=== PATIENT | male | born 1935 | race Caucasian/White ===

== ENCOUNTER 2017-07-16 10:45 | Inpatient (IN) | payer MEDICARE, OTHER ==
[2017-07-16] MEDS ORDERED: IPRATROPIUM-ALBUTEROL 3 ML NEB INHALATION STA ×2 (12:15→13:54)
--- NOTE | 2017-07-16 12:18 | ED ---
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 He also had intermittent episodes a slight confusion he has chills and feels cold more than usual. He's had an upper respiratory infection with sinus drainage and a cough. He was seen at the [facility] 3 [facility] 4 days ago and apparently nothing was found. EKG done. No dysuria no hematuria he does have a cough with minimal phlegm production - Related Data Home Medications Medication Instructions Recorded Confirmed Aspirin/Dipyridamole [Aggrenox 1 cap PO BID 07/16/17 07/16/17 25MG -200MG] Atenolol [Tenormin] 50 mg PO DAILY 07/16/17 07/16/17 Citalopram Hydrobromide [CeleXA] 20 mg PO DAILY 07/16/17 07/16/17 Finasteride [Proscar] 5 mg PO DAILY 07/16/17 07/16/17 Folic Acid 1 mg PO DAILY 07/16/17 07/16/17 Hydrochlorothiazide [Hydrodiuril] 50 mg PO DAILY 07/16/17 07/16/17 Pyridoxine 25mg 25 mg PO DAILY 07/16/17 07/16/17 Simvastatin [Zocor] 20 mg PO HS 07/16/17 07/16/17 Terazosin [Hytrin] 5 mg PO HS 07/16/17 07/16/17 amLODIPine [Norvasc] 5 mg PO DAILY 07/16/17 07/16/17 metFORMIN HCL [Glucophage] 500 mg PO DAILY 07/16/17 07/16/17 Allergies Allergy/AdvReac Type Severity Reaction Status Date / Time No Known Allergies Allergy Verified 07/16/17 11:16 Review of Systems ROS Statement: Those systems with pertinent positive or pertinent negative responses have been documented in the HPI. ROS Other: All systems not noted in ROS Statement are negative. Past Medical History Past Medical History: Heart Failure, CVA/TIA, Hyperlipidemia, Hypertension, Prostate Disorder History of Any Multi-Drug Resistant Organisms: None Reported Past Surgical History: Hernia Repair Past Psychological History: Anxiety Smoking Status: Former smoker Past Alcohol Use History: None Reported, Rare Past Drug Use History: None Reported General Exam - General Exam Comments Initial Comments: This a well-developed well-nourished awake alert oriented 3 male he is somewhat hard of hearing Limitations: physical limitation General appearance: alert, in no apparent distress Head exam: Present: atraumatic, normocephalic, normal inspection Eye exam: Present: normal appearance, PERRL, EOMI. Absent: scleral icterus, conjunctival injection, periorbital swelling ENT exam: Present: mucous membranes dry Neck exam: Present: normal inspection. Absent: tenderness, meningismus, lymphadenopathy Respiratory exam: Present: rhonchi (Basilar rhonchi more so on the left than the right), decreased breath sounds. Absent: respiratory distress, wheezes, rales, stridor Cardiovascular Exam: Present: regular rate, normal rhythm, normal heart sounds. Absent: systolic murmur, diastolic murmur, rubs, gallop, clicks GI/Abdominal exam: Present: soft, normal bowel sounds. Absent: distended, tenderness, guarding, rebound, rigid Extremities exam: Present: normal inspection, full ROM, normal capillary refill. Absent: tenderness, pedal edema, joint swelling, calf tenderness Back exam: Present: normal inspection Neurological exam: Present: alert, oriented X3, CN II-XII intact Psychiatric exam: Present: normal affect, normal mood Skin exam: Present: warm, dry, intact, normal color. Absent: rash Course Vital Signs 07/16/17 07/16/17 07/16/17 11:02 12:26 12:56 Temperature 97.5 F L Pulse Rate 60 68 61 Respiratory 18 16 Rate Blood Pressure 110/56 O2 Sat by Pulse 97 Oximetry 07/16/17 07/16/17 07/16/17 13:05 14:00 14:34 Temperature 98.8 F Pulse Rate 57 L 70 72 Respiratory 18 Rate Blood Pressure 134/58 O2 Sat by Pulse 98 Oximetry 07/16/17 14:44 Temperature Pulse Rate 74 Respiratory Rate Blood Pressure O2 Sat by Pulse Oximetry EKG Findings - EKG Results: EKG: interpreted by ERMD (Sinus bradycardia with first-degree AV block rate was 58. Interval 2:30 QRS 94 QT since QTC of 462/453 st-t wave changes) Medical Decision Making - Medical Decision Making I did discuss findings with patient family members as well as Dr. Rogers's group patient will be admitted for evaluation by nephrology. - Lab Data Result diagrams: 07/16/17 11:27 07/16/17 11:27 Lab Results 07/16/17 07/16/17 07/16/17 Range/Units 11:27 11:27 11:27 WBC 15.0 H (3.8-10.6) k/uL RBC 3.63 L (4.30-5.90) m/uL Hgb 11.6 L (13.0-17.5) gm/dL Hct 34.2 L (39.0-53.0) % MCV 94.0 (80.0-100.0) fL MCH 31.9 (25.0-35.0) pg MCHC 33.9 (31.0-37.0) g/dL RDW 12.1 (11.5-15.5) % Plt Count 326 (150-450) k/uL Neutrophils % 82 % Lymphocytes % 10 % Monocytes % 5 % Eosinophils % 1 % Basophils % 0 % Neutrophils # 12.3 H (1.3-7.7) k/uL Lymphocytes # 1.4 (1.0-4.8) k/uL Monocytes # 0.8 (0-1.0) k/uL Eosinophils # 0.1 (0-0.7) k/uL Basophils # 0.1 (0-0.2) k/uL Sodium (137-145) mmol/L Potassium (3.5-5.1) mmol/L Chloride (98-107) mmol/L Carbon Dioxide (22-30) mmol/L Anion Gap mmol/L BUN (9-20) mg/dL Creatinine (0.66-1.25) mg/dL Est GFR (MDRD) Af Amer (>60 ml/min/1.73 sqM) Est GFR (MDRD) Non-Af (>60 ml/min/1.73 sqM) Glucose (74-99) mg/dL Calcium (8.4-10.2) mg/dL Magnesium (1.6-2.3) mg/dL Total Bilirubin (0.2-1.3) mg/dL AST (17-59) U/L ALT (21-72) U/L Alkaline Phosphatase (38-126) U/L Total Creatine Kinase 48 L (55-170) U/L CK-MB (CK-2) 0.5 (0.0-2.4) ng/mL CK-MB (CK-2) Rel Index 1.0 Troponin I 0.022 (0.000-0.034) ng/mL NT-Pro-B Natriuret Pep 62341 pg/mL Total Protein (6.3-8.2) g/dL Albumin (3.5-5.0) g/dL Urine Color Urine Appearance (Clear) Urine pH (5.0-8.0) Ur Specific [place] (1.001-1.035) Urine Protein (Negative) Urine Glucose (UA) (Negative) Urine Ketones (Negative) Urine Blood (Negative) Urine Nitrite (Negative) Urine Bilirubin (Negative) Urine Urobilinogen (<2.0) mg/dL Ur Leukocyte Esterase (Negative) Urine RBC (0-5) /hpf Urine WBC (0-5) /hpf Urine Bacteria (None) /hpf Urine Mucus (None) /hpf 07/16/17 07/16/17 Range/Units 11:27 12:20 WBC (3.8-10.6) k/uL RBC (4.30-5.90) m/uL Hgb (13.0-17.5) gm/dL Hct (39.0-53.0) % MCV (80.0-100.0) fL MCH (25.0-35.0) pg MCHC (31.0-37.0) g/dL RDW (11.5-15.5) % Plt Count (150-450) k/uL Neutrophils % % Lymphocytes % % Monocytes % % Eosinophils % % Basophils % % Neutrophils # (1.3-7.7) k/uL Lymphocytes # (1.0-4.8) k/uL Monocytes # (0-1.0) k/uL Eosinophils # (0-0.7) k/uL Basophils # (0-0.2) k/uL Sodium 131 L (137-145) mmol/L Potassium 3.0 L* (3.5-5.1) mmol/L Chloride 90 L (98-107) mmol/L Carbon Dioxide 24 (22-30) mmol/L Anion Gap 17 mmol/L BUN 93 H* (9-20) mg/dL Creatinine 3.49 H (0.66-1.25) mg/dL Est GFR (MDRD) Af Amer 21 (>60 ml/min/1.73 sqM) Est GFR (MDRD) Non-Af 17 (>60 ml/min/1.73 sqM) Glucose 173 H (74-99) mg/dL Calcium 8.1 L (8.4-10.2) mg/dL Magnesium 2.5 H (1.6-2.3) mg/dL Total Bilirubin 0.5 (0.2-1.3) mg/dL AST 21 (17-59) U/L ALT 26 (21-72) U/L Alkaline Phosphatase 79 (38-126) U/L Total Creatine Kinase (55-170) U/L CK-MB (CK-2) (0.0-2.4) ng/mL CK-MB (CK-2) Rel Index Troponin I (0.000-0.034) ng/mL NT-Pro-B Natriuret Pep pg/mL Total Protein 6.6 (6.3-8.2) g/dL Albumin 3.3 L (3.5-5.0) g/dL Urine Color Light Yellow Urine Appearance Clear (Clear) Urine pH 6.0 (5.0-8.0) Ur Specific [place] 1.007 (1.001-1.035) Urine Protein 1+ H (Negative) Urine Glucose (UA) Negative (Negative) Urine Ketones Negative (Negative) Urine Blood Moderate H (Negative) Urine Nitrite Negative (Negative) Urine Bilirubin Negative (Negative) Urine Urobilinogen <2.0 (<2.0) mg/dL Ur Leukocyte Esterase Moderate H (Negative) Urine RBC 3 (0-5) /hpf Urine WBC 22 H (0-5) /hpf Urine Bacteria Few H (None) /hpf Urine Mucus Rare H (None) /hpf - Radiology Data Radiology results: report reviewed (I did review the imaging and reports no acute findings.), image reviewed Disposition Clinical Impression: Acute renal failure (ARF), Congestive heart failure (CHF), Failure to thrive Disposition: ADMITTED IP TO THIS HOSP Condition: Stable Referrals: Caio Muñoz DO [Primary Care Provider] - 1-2 days
[2017-07-16 12:32] LABS: Basophils # (A) 0.1 k/uL (0-0.2); Basophils % (A) 0 %; CH 31.6; CHCM 33.7; Eosinophils # (A) 0.1 k/uL (0-0.7); Eosinophils % (A) 1 %; HCT 34.2 % (39.0-53.0); HDW 2.21; HGB 11.6 gm/dL (13.0-17.5); Luc # (Auto) 0.29; Luc % (Auto) 2; Lymphocytes # (A) 1.4 k/uL (1.0-4.8); Lymphocytes % (A) 10 %; MCH 31.9 pg (25.0-35.0); MCHC 33.9 g/dL (31.0-37.0); Mean Platelet Volume 7.3; Monocytes # (A) 0.8 k/uL (0-1.0); Monocytes % (A) 5 %; Neutrophils # (A) 12.3 k/uL (1.3-7.7); Neutrophils % (A) 82 %; RBC 3.63 m/uL (4.30-5.90); RDW 12.1 % (11.5-15.5); WBC (Perox) 15.28
[2017-07-16 12:38] LABS: Calcium 8.1 mg/dL (8.4-10.2); Magnesium 2.5 mg/dL (1.6-2.3); Total Bilirubin 0.5 mg/dL (0.2-1.3); Total Protein 6.6 g/dL (6.3-8.2)
[2017-07-16 12:40] LABS: Appearance,Urine Clear (Clear); Bacteria,Urine Few /hpf; Bilirubin,Urine Negative (Negative); Glucose,Urine (UA) Negative (Negative); Ketones,Urine Negative (Negative); Leukocyte Esterase,Urine Moderate (Negative); Mucus,Urine Rare /hpf; Nitrite,Urine Negative (Negative); Particle Count 1023; Protein,Urine 1+ (Negative); RBC,Urine 3 /hpf (0-5); Specific Gravity,Urine 1.007 (1.001-1.035); UA Billing (MACRO vs. MICRO) MICRO; Urobilinogen,Urine <2.0 mg/dL (<2.0); WBC,Urine 22 /hpf (0-5)
--- NOTE | 2017-07-16 12:48 | XR ---
EXAMINATION TYPE: XR chest 2V DATE OF EXAM: 07/16/2017 COMPARISON: Chest x-ray Feb 13 2012 HISTORY: History of heart failure presents with cough. TECHNIQUE: Frontal and lateral views of the chest are obtained. FINDINGS: There is no focal air space opacity, pleural effusion, or pneumothorax seen. The cardiac silhouette size remains enlarged. 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 The osseous structures are somewhat demineralized. IMPRESSION: Cardiomegaly without acute pulmonary process. No significant change from prior.
[2017-07-16 13:16] LABS: Creatine Kinase MB 0.5 ng/mL (0.0-2.4); Troponin I 0.022 ng/mL (0.000-0.034)
[2017-07-16] MEDS ORDERED: SODIUM CHLORIDE 0.9% 1,000 ML IV SCH (15:30)
[2017-07-16] MEDS: INSULIN LISPRO (humaLOG) 300 UNIT/3 ML VIAL SQ SCH ×2 (20:26→22:00)
[2017-07-16] MEDS ORDERED: Potassium Replacement Protocol 1 EACH MISC MISCELLANE PRN (20:33)
[2017-07-16] MEDS: NITROGLYCERIN OINT 1 INCH/GM PACKET TOPICAL SCH ×2 (20:34→22:12)
[2017-07-16] MEDS: DIPYRIDAMOLE-ASPIRIN 200-25 MG 1 EACH CPMP.12HR PO SCH (20:36)
[2017-07-16] MEDS: ATORVASTATIN 10 MG TAB PO SCH (20:36)
[2017-07-16] MEDS: FUROSEMIDE 10 MG/ML 4 ML VIAL IV SCH (20:36)
[2017-07-16] MEDS: TERAZOSIN 5 MG CAP PO SCH (20:36)
[2017-07-16 20:51] LABS: Glucose,Whole Blood 211 mg/dL (75-99)
[2017-07-16] MEDS ORDERED: POTASSIUM CHLORIDE ER 20 MEQ TAB.ER PO STA (20:53)
[2017-07-16] MEDS ORDERED: POTASSIUM CHLORIDE ER 20 MEQ TAB.ER PO SCH (21:00)
[2017-07-16] MEDS ORDERED: LEVOFLOXACIN 500MG-D5W PMX 500 MG in DEXTROSE/WATER 1 100ML.BAG IVPB SCH (21:00)
[2017-07-16 21:50] LABS: Hemoglobin A1C 7.4 % (4.2-6.1)
[2017-07-16] MEDS: SODIUM CHLORIDE 0.9% 1,000 ML IV SCH (21:54)
--- NOTE | 2017-07-17 06:30 | HP ---
HISTORY AND PHYSICAL DATE OF SERVICE: 07/16/2017 CHIEF COMPLAINT: Chief complaints are change in mental status and weakness. HISTORY OF PRESENT ILLNESS: This 81-year-old gentleman with a past medical history of multiple medical problems including history of CVA, TIA, CHF, hypertension, hyperlipidemia. History of prostate disorder was being followed by Dr. Muñoz in the outpatient setting. Apparently patient is not feeling well, tired, weak and patient had stroke-like symptoms and patient taken to [facility] and admitted for further evaluation and treatment. Apparently patient did golf quite bit a couple of days ago. In the ER the patient was found to have elevated creatinine at 3.49. Patient was admitted for further evaluation and treatment. Evidence of UTI was also noted. There is no history of any fever , rigors. No history of headache, loss of consciousness or seizures. PAST MEDICAL HISTORY: History of CHF, history of CVA, TIA, hypertension, hyperlipidemia, prostate disorder. MEDICATIONS: Home medications are: 1. Glucophage 500 mg p.o. daily. 2. Norvasc 5 mg p.o. daily. 3. Hytrin 5 mg q.h.s. 4. Zocor 20 mg p.o. q.h.s. 5. Pyridoxine 25 mg p.o. daily. 6. HydroDIURIL 50 mg daily. 7. Folic acid 1 mg daily. 8. Proscar 5 mg p.o. daily. 9. Celexa 20 mg daily. 10.Tenormin 50 mg p.o. daily. 11.Aggrenox 1 p.o. b.i.d. ALLERGIES: Allergies are none. FAMILY HISTORY: No history of heart disease or strokes in the family. SOCIAL HISTORY: Previous history of smoking. No history of current smoking or alcohol intake. REVIEW OF SYSTEMS: ENT: Diminished hearing and diminished vision. CARDIOVASCULAR SYSTEM: No angina or palpitations. RESPIRATORY SYSTEM: No cough, no hemoptysis. GI: As mentioned earlier. : No dysuria. NERVOUS SYSTEM: As mentioned earlier. ALLERGY/IMMUNOLOGY: No asthma or hayfever. MUSCULOSKELETAL: As mentioned earlier. HEMATOLOGY/ONCOLOGY: No history of anemia. ENDOCRINE: No history of diabetes mellitus or hypothyroidism. CONSTITUTIONAL: As mentioned earlier. DERMATOLOGY: Negative. RHEUMATOLOGY: Negative. PSYCHIATRY: As mentioned earlier. PHYSICAL EXAMINATION: The patient is alert and oriented x3. Pulse is 69, blood pressure is 128/59, respirations 16, temperature 98 degrees, pulse ox 96% on 2 L. HEENT: Conjunctivae clear. Oral mucosa dry. NECK: No jugular venous distention. No carotid bruit. No lymph node enlargement. CARDIOVASCULAR: S1 and S2 muffled. No S3, no S4. RESPIRATORY: Breath sounds diminished at the bases. A few scattered rhonchi. No crackles. ABDOMEN: Soft, nontender. No mass palpable. LEGS: No edema, no swelling. NERVOUS SYSTEM: Higher function as mentioned. Moves all 4 limbs. No focal motor or sensory deficits. LYMPHATICS: No lymphadenopathy of the neck, axillae or groin. SKIN: No ulcers, rashes or bleeding. LABS: WBC 15, hemoglobin 11.6. Sodium 131, potassium 3. Magnesium is 2.5. UA noted. ASSESSMENT: 1. Acute renal failure possibly prerenal _acute tubular necrosis. 2. Hypokalemia. 3. History of congestive heart failure. 4. Urinary tract infection. 5. Increased WBC. 6. History of cerebrovascular accident, transient ischemic attack. 7. Hypertension. 8. Hyperlipidemia. RECOMMENDATION AND DISCUSSION: In this 81-year-old gentleman who presented with multiple complex medical issues , will monitor the patient closely. Continue the current medications, continue symptomatic treatment. Will initiate IV fluids cautiously, IV antibiotics. Otherwise I would also recommend Cardiology and Nephrology consultations. Other than that, I would recommend to hold the diuretics and continue to monitor. Obtain cultures. Resume the rest of the medications. Avoid nephrotoxic medications. The prognosis guarded because of the multiple complex medical issues. Initial chest x-ray did not show any evidence of CHF but however, we will carefully monitor. Discussed with the patient, understands and agrees. A copy of dictation forwarded to Dr. Muñoz who is the primary physician. MMODL / IJN: [id number] / MTDNely
[2017-07-17] MEDS ORDERED: POTASSIUM CHLORIDE ER 20 MEQ TAB.ER PO SCH (07:00)
[2017-07-17] MEDS: FUROSEMIDE 10 MG/ML 4 ML VIAL IV SCH (07:00)
[2017-07-17] MEDS: INSULIN LISPRO (humaLOG) 300 UNIT/3 ML VIAL SQ SCH ×4 (07:01→21:06)
[2017-07-17 07:07] LABS: Glucose,Whole Blood 178 mg/dL (75-99)
[2017-07-17] MEDS: ATENOLOL 50 MG TAB PO SCH (08:29)
[2017-07-17] MEDS: DIPYRIDAMOLE-ASPIRIN 200-25 MG 1 EACH CPMP.12HR PO SCH ×2 (08:29→21:02)
[2017-07-17] MEDS: CITALOPRAM HYDROBROMIDE 20 MG TAB PO SCH (08:30)
[2017-07-17] MEDS: FINASTERIDE 5 MG TAB PO SCH (08:30)
[2017-07-17] MEDS: NITROGLYCERIN OINT 1 INCH/GM PACKET TOPICAL SCH (08:31)
[2017-07-17] MEDS ORDERED: metFORMIN 500 MG TAB PO SCH (09:00)
[2017-07-17] MEDS ORDERED: PYRIDOXINE 25 MG PO SCH (09:00)
[2017-07-17] MEDS ORDERED: amLODIPine 5 MG TAB PO SCH (09:00)
[2017-07-17] MEDS ORDERED: HYDROCHLOROTHIAZIDE 50 MG TAB PO SCH (09:00)
--- NOTE | 2017-07-17 09:36 | P.PN ---
Progress Note - Text this is an addendum to the dictated cardiology consultation. The patient presents with symptoms of progressive fatigue and dyspnea, he was noted to have renal failure. He is usually active physically, uses his treadmill on a regular basis without any associated symptoms or limitations. His lab data in February of this year showed a normal renal function. He has no prior cardiac history, he denies any history of CHF, CAD or arrhythmia. On his physical examination he is laying supine without any symptoms of dyspnea. His lungs are clear and there is no evidence of peripheral edema. His lab data revealed an elevated NT proBNP that is most likely related to his renal function abnormalities. I do not believe that he has any evidence of CHF. I will stop his furosemide and hold his amlodipine and Nitropaste. He will receive IV hydration, his echocardiogram will be reviewed. We'll follow his renal function closely and depending on his progress further recommendations will be made. Thank you for this consult we will follow with you.
--- NOTE | 2017-07-17 09:46 | P.CRDCN ---
History of Present Illness Consult date: 07/17/17 Requesting physician: Arielle Rogers Reason for Consult (text): CHF, ARF Chief complaint: Progressive fatigue, weakness History of present illness: This is a pleasant 81-year-old gentleman with history of CVA, hyperlipidemia, hypertension and prostate disorder. Presented to the emergency department with complaints of progressive weakness, fatigue, malaise and poor appetite. Up until recently he is usually pretty active, walks on his treadmill regularly without any difficulties. On arrival, patient was found to have a BUN of 93 and creatinine 3.49, apparently had normal renal functions in February. Elevated white count with a potassium of 3. Troponin 1 was negative. Cardiology was placed in consult because the BNP came back to be elevated at 10, 700. Chest x-ray showed no acute pulmonary process. He's been on IV fluids at 75 miles an hour as well as IV Lasix 40 mg every 12 hours. Upon examination, patient is supine without difficulty breathing. He has no lower extremity edema. No complaints of shortness of breath. Past Medical History Past Medical History: Heart Failure, CVA/TIA, Hyperlipidemia, Hypertension, Prostate Disorder History of Any Multi-Drug Resistant Organisms: None Reported Past Surgical History: Hernia Repair Past Psychological History: Anxiety Smoking Status: Former smoker Past Alcohol Use History: None Reported, Rare Past Drug Use History: None Reported Medications and Allergies Home Medications Medication Instructions Recorded Confirmed Type Aspirin/Dipyridamole [Aggrenox 1 cap PO BID 07/16/17 07/16/17 History 25MG -200MG] Atenolol [Tenormin] 50 mg PO DAILY 07/16/17 07/16/17 History Citalopram Hydrobromide [CeleXA] 20 mg PO DAILY 07/16/17 07/16/17 History Finasteride [Proscar] 5 mg PO DAILY 07/16/17 07/16/17 History Folic Acid 1 mg PO DAILY 07/16/17 07/16/17 History Hydrochlorothiazide [Hydrodiuril] 50 mg PO DAILY 07/16/17 07/16/17 History Pyridoxine 25mg 25 mg PO DAILY 07/16/17 07/16/17 History Simvastatin [Zocor] 20 mg PO HS 07/16/17 07/16/17 History Terazosin [Hytrin] 5 mg PO HS 07/16/17 07/16/17 History amLODIPine [Norvasc] 5 mg PO DAILY 07/16/17 07/16/17 History metFORMIN HCL [Glucophage] 500 mg PO DAILY 07/16/17 07/16/17 History Allergies Allergy/AdvReac Type Severity Reaction Status Date / Time No Known Allergies Allergy Verified 07/16/17 11:16 Physical Exam Vitals: Vital Signs Temp Pulse Pulse Resp BP BP Pulse Ox 07/17/17 04:15 18 97 07/17/17 04:00 98.2 F 61 18 111/52 99 07/16/17 23:00 98.5 F 66 18 127/78 98 07/16/17 22:38 98.9 F 94 20 126/68 97 07/16/17 20:00 98.9 F 94 20 126/68 97 07/16/17 18:56 98.2 F 97 16 116/63 98 07/16/17 17:49 68 16 98 07/16/17 16:59 98 F 69 16 128/59 96 07/16/17 15:00 18 07/16/17 14:44 74 07/16/17 14:34 72 07/16/17 14:00 98.8 F 70 18 134/58 98 07/16/17 13:05 57 L 07/16/17 12:56 61 07/16/17 12:26 68 16 07/16/17 11:02 97.5 F L 60 18 110/56 97 Intake and Output 07/16/17 07/17/17 07/17/17 22:59 06:59 14:59 Intake Total 550 Output Total 1000 525 Balance -450 -525 Intake: Intake, IV Titration 550 Amount Levofloxacin 500Mg-D5w 100 Pmx 500 mg In Dextrose/ Water 1 100ml.bag @ 100 mls/hr IVPB Q24H [facility] Rx#: [id number] Sodium Chloride 0.9% 1, 450 000 ml @ 75 mls/hr IV . [id number] [facility] Rx#:[id number] Output: Urine 1000 525 Other: Voiding Method Urinal Urinal # Voids 1 Weight 83.007 kg 84 kg PHYSICAL EXAMINATION: HEENT: Head is atraumatic, normocephalic. Pupils equal, round. Neck is supple. There is no elevated jugular venous pressure. HEART EXAMINATION: Heart sounds regular, S1 and S2 normal. No murmur or gallop heard. CHEST EXAMINATION: Lungs are clear to auscultation and precussion. No chest wall tenderness is noted on palpation or with deep breathing. ABDOMEN: Soft, nontender. Bowel sounds are heard. No organomegaly noted. EXTREMITIES: 2+ peripheral pulses with no evidence of peripheral edema and no calf tenderness noted. NEUROLOGIC patient is awake, alert and oriented x3. . Results 07/16/17 11:27 07/17/17 05:49 Cardiac Enzymes 07/16/17 07/16/17 Range/Units 11:27 11:27 AST 21 (17-59) U/L CK-MB (CK-2) 0.5 (0.0-2.4) ng/mL Troponin I 0.022 (0.000-0.034) ng/mL CBC 07/16/17 Range/Units 11:27 WBC 15.0 H (3.8-10.6) k/uL RBC 3.63 L (4.30-5.90) m/uL Hgb 11.6 L (13.0-17.5) gm/dL Hct 34.2 L (39.0-53.0) % Plt Count 326 (150-450) k/uL Comprehensive Metabolic Panel 07/16/17 07/17/17 Range/Units 11:27 05:49 Sodium 131 L (137-145) mmol/L Potassium 3.0 L* 3.4 L (3.5-5.1) mmol/L Chloride 90 L (98-107) mmol/L Carbon Dioxide 24 (22-30) mmol/L BUN 93 H* (9-20) mg/dL Creatinine 3.49 H (0.66-1.25) mg/dL Glucose 173 H (74-99) mg/dL Calcium 8.1 L (8.4-10.2) mg/dL AST 21 (17-59) U/L ALT 26 (21-72) U/L Alkaline Phosphatase 79 (38-126) U/L Total Protein 6.6 (6.3-8.2) g/dL Albumin 3.3 L (3.5-5.0) g/dL Current Medications Generic Name Dose Route Start Last Admin Trade Name Freq PRN Reason Stop Dose Admin Atenolol 50 mg 07/17/17 09:00 07/17/17 08:29 Tenormin PO 50 mg DAILY [facility] Administration Atorvastatin Calcium 10 mg 07/16/17 21:00 07/16/17 20:36 Lipitor PO 10 mg HS [facility] Administration Citalopram Hydrobromide 20 mg 07/17/17 09:00 07/17/17 08:30 Celexa PO 20 mg DAILY [facility] Administration Dipyridamole/Aspirin 1 each 07/16/17 21:00 07/17/17 08:29 Aggrenox PO 1 each BID [facility] Administration Finasteride 5 mg 07/17/17 09:00 07/17/17 08:30 Proscar PO 5 mg DAILY [facility] Administration Folic Acid 1 mg 07/17/17 12:00 Folic Acid PO 1200 [facility] Sodium Chloride 1,000 mls @ 75 mls/hr 07/16/17 19:57 07/16/17 21:54 Saline 0.9% IV 75 mls/hr .[id number] [facility] Administration Levofloxacin 500 mg/ IV 100 mls @ 100 mls/hr 07/16/17 21:00 07/16/17 22:06 Solution IVPB 100 mls/hr Q24H [facility] Administration Insulin Human Lispro 0 unit 07/16/17 17:30 07/17/17 07:01 Humalog SQ 2 unit ACHS [facility] Administration Protocol Miscellaneous Information 1 each 07/16/17 20:33 Potassium Per Protocol MISCELLANE DAILY PRN Per Protocol Protocol Terazosin HCl 5 mg 07/16/17 21:00 07/16/17 20:36 Hytrin PO 5 mg HS [facility] Administration Intake and Output 07/16/17 07/17/17 07/17/17 22:59 06:59 14:59 Intake Total 550 Output Total 1000 525 Balance -450 -525 Intake: Intake, IV Titration 550 Amount Levofloxacin 500Mg-D5w 100 Pmx 500 mg In Dextrose/ Water 1 100ml.bag @ 100 mls/hr IVPB Q24H [facility] Rx#: [id number] Sodium Chloride 0.9% 1, 450 000 ml @ 75 mls/hr IV . [id number] [facility] Rx#:[id number] Output: Urine 1000 525 Other: Voiding Method Urinal Urinal # Voids 1 Weight 83.007 kg 84 kg 07/16/17 11:27 07/17/17 05:49 EKG Interpretations (text) Sinus rhythm with first-degree AV block Assessment and Plan Plan: Assessment and plan #1 acute renal failure #2 elevated BNP, likely secondary to renal failure #3 hypertension #4 hyperlipidemia #5 history of CVA Cardiology's perspective, patient does not clinically appear to be in acute congestive heart failure. We will discontinue Lasix and Nitropaste. We will hold amlodipine. Continue IV fluids. We will obtain 2-D echo with Doppler. Further recommendations to follow. [employer]BAT SYSTEMS OFFICER note has been reviewed, I agree with a documented findings and plan of care. Patient was seen and examined.
--- NOTE | 2017-07-17 10:24 | ECHOF ---
Referral Reason:CHF MEASUREMENTS -------- HEIGHT: 175.3 cm WEIGHT: 83.9 kg BP: 111/52 IVSd: 1.0 cm (0.6 - 1.1) LVIDd: 5.2 cm (3.9 - 5.3) LVPWd: 1.1 cm (0.6 - 1.1) IVSs: 1.5 cm LVIDs: 1.9 cm LVPWs: 1.9 cm Ao Diam: 3.5 cm (2.0 - 3.7) AV Cusp: 1.6 cm (1.5 - 2.6) LA Diam: 3.9 cm (2.7 - 3.8) MV EXCURSION: 13.883 mm (> 18.000) MV EF SLOPE: 147 mm/s (70 - 150) EPSS: 0.4 cm MV E Ron: 0.76 m/s MV DecT: 313 ms MV A Ron: 0.46 m/s MV E/A Ratio: 1.65 AV maxP.85 mmHg AV meanP.69 mmHg RAP: 5.00 mmHg RVSP: 31.34 mmHg FINDINGS -------- Sinus rhythm with extra systolic beats. This was a technically good study. The left ventricular size is normal. Left ventricular wall thickness is normal. Overall left ventricular systolic function is normal with, an EF between 55 - 60 %. The right ventricle is normal in size and function. The left atrium is normal in size. The right atrium is normal in size. Aortic valve is trileaflet and is mildly thickened. Trace amount of aortic regurgitation. There is mild aortic stenosis present. Peak/mean gradient across the Aortic Valve is 16.85mmHg / 9.69mmHg. The mitral valve leaflets are mildly thickened. Mild mitral annular calcification present. Mild mitral regurgitation is present. Mild tricuspid regurgitation present. The right ventricular systolic pressure, as measured by Doppler, is 31.34mmHg. Pulmonic valve appears structurally normal. The aortic root size is normal. The pericardium is normal. CONCLUSIONS -------- 1. Sinus rhythm with extra systolic beats. 2. Trace amount of aortic regurgitation. 3. There is mild aortic stenosis present. 4. Peak/mean gradient across the Aortic Valve is 16.85mmHg / 9.69mmHg. 5. The mitral valve leaflets are mildly thickened. 6. Mild mitral annular calcification present. 7. Mild mitral regurgitation is present. 8. Mild tricuspid regurgitation present. 9. The right ventricular systolic pressure, as measured by Doppler, is 31.34mmHg. 10. Pulmonic valve appears structurally normal. 11. The aortic root size is normal. 12. This was a technically good study. 13. The pericardium is normal. 14. The left ventricular size is normal. 15. Left ventricular wall thickness is normal. 16. Overall left ventricular systolic function is normal with, an EF between 55 - 60 %. 17. The right ventricle is normal in size and function. 18. The left atrium is normal in size. 19. The right atrium is normal in size. 20. Aortic valve is trileaflet and is mildly thickened. ELECTRONICS MECHANIC: Jessica Das RDCS
[2017-07-17] MEDS: FOLIC ACID 1 MG TAB PO SCH (11:09)
[2017-07-17 11:45] LABS: Glucose,Whole Blood 157 mg/dL (75-99)
[2017-07-17] MEDS: SODIUM CHLORIDE 0.9% 1,000 ML IV SCH (11:57)
[2017-07-17 12:13] LABS: Potassium 3.2 mmol/L (3.5-5.1)
[2017-07-17] MEDS ORDERED: ASPIRIN 325 MG TAB PO SCH (15:25)
--- NOTE | 2017-07-17 15:45 | PN ---
PROGRESS NOTE DATE OF SERVICE: 07/17/2017 This is an progress note. This is a 81-year-old gentleman who was admitted with acute renal failure and change in mental status, is being closely monitored at this time. The creatinine is 3.7 today, potassium is 3.2. Nephrology is following the patient closely. PAST MEDICAL HISTORY: Reviewed. REVIEW OF SYSTEMS: CARDIOVASCULAR SYSTEM: No angina, palpitation. GI: mentioned earlier. : As mentioned earlier. NERVOUS SYSTEM: No numbness or weakness. CURRENT MEDICATIONS: Reviewed include: 1. Tenormin 50 mg daily. 2. Lipitor 10 mg q.h.s. 3. Celexa 20 mg b.i.d. 4. Proscar 5 mg. 5. Folic acid 1 mg. 6. HumaLog scale. 7. Levaquin. 8. Hytrin. PHYSICAL EXAM: Patient is alert and oriented x3. Pulse is 65, blood pressure 113/58, respiration 18, temperature 98.4, pulse ox 98% on room air. HEENT: Conjunctivae normal. Oral mucosa moist. Neck is no jugular venous distention. No lymph node enlargement. CARDIOVASCULAR SYSTEM: S1, S2, ejection fraction is normal. No S3, No S4. RESPIRATORY: Breath sounds diminished in the bases. A few scattered rhonchi. No crackles. ABDOMEN: Soft, nontender. No mass. LEGS: No edema. No swelling. NEURO SYSTEM: Higher functions as mentioned,. moves all 4 limbs. LYMPHATICS: None. SKIN: No ulcer, rash, bleeding. LABS: WBC not available, sodium 130, potassium 3.2. BUN is 96, creatinine 3.790, UA noted. ASSESSMENT: 1. Acute renal failure, possibly prerenal, renal failure secondary to acute tubular necrosis. 2. Hypokalemia. 3. Urinary tract infection. 4. History of congestive heart failure. 5. Increased WBC. 6. Cerebrovascular accident, transient ischemic attack. 7. Hypertension. 8. Hyperlipidemia. RECOMMENDATION AND DISCUSSION: Recommend to continue with the current medications. Continue with the symptomatic treatment. Otherwise, at this time I recommend to continue with the cautious IV fluids. The patient appears to be tolerated IV fluids well. Will await Cardiology and Pulmonology evaluations and a 2D echo showed ejection fraction about 55% to 60%. The prognosis guarded because of multiple complex medical issues. Also recommend the patient increase ambulation. Also continue the rest of the medications. I would defer toxic medications. Guarded prognosis. Further recommendations to follow. MMODL / IJN: [id number] /
[2017-07-17] MEDS: HEPARIN SODIUM,PORCINE 5,000 UNIT/ML 1 ML VIAL SQ SCH ×2 (16:21→21:02)
[2017-07-17] MEDS ORDERED: Potassium Replacement Protocol 1 EACH MISC MISCELLANE PRN (16:24)
[2017-07-17 17:00] LABS: Glucose,Whole Blood 186 mg/dL (75-99)
[2017-07-17] MEDS ORDERED: POTASSIUM CHLORIDE ER 20 MEQ TAB.ER PO STA (17:24)
[2017-07-17] MEDS: POTASSIUM CHLORIDE ER 20 MEQ TAB.ER PO SCH ×2 (17:33→21:01)
--- NOTE | 2017-07-17 19:34 | US ---
EXAMINATION TYPE: US kidneys/renal and bladder DATE OF EXAM: 07/17/2017 COMPARISON: NONE CLINICAL HISTORY: renal failure. renal failure EXAM MEASUREMENTS: Right Kidney: 12.9 x 5.5 x 6.0 cm Left Kidney: 11.3 x 6.8 x 5.3 cm Right Kidney: Cystic area mid pole measuring 2.2 x 2.9 x 2.9cm no hydronephrosis Left Kidney: No hydronephrosis or masses seen Bladder: Anechoic not fully distended Bilateral Jets seen: No There is no evidence for hydronephrosis at this point in time. No nephrolithiasis is seen. No suspi cious solid or cystic masses are identified on images saved. The urinary bladder is anechoic. Bladde r is poorly distended and thus somewhat suboptimally evaluated. Bilateral ureteral jets are not seen. A 2.9 cm simple appearing cyst is seen upper to mid pole level laterally right kidney on images save d. IMPRESSION: No hydronephrosis is evident bilaterally.
[2017-07-17] MEDS ORDERED: LEVOFLOXACIN 250 MG TAB PO SCH (21:00)
[2017-07-17] MEDS: ATORVASTATIN 10 MG TAB PO SCH (21:02)
[2017-07-17] MEDS: TERAZOSIN 5 MG CAP PO SCH (21:02)
[2017-07-17 21:07] LABS: Glucose,Whole Blood 156 mg/dL (75-99)
--- NOTE | 2017-07-17 23:23 | CONS ---
CONSULTATION DATE OF CONSULTATION: 07/17/2017 HISTORY OF PRESENT ILLNESS: The patient is a 81-year-old male who was admitted to the hospital yesterday with complaints of shortness of breath, not feeling well. He also had altered mentation. His family noticed he was confused and sleeping a lot and therefore he was brought in. There is no prior history of kidney disease. The patient does have BPH. He also has a history of diabetes and hypertension. He denies use of any nonsteroidal anti- inflammatory agents prior to admission. Serum creatinine was 3.49 mg/dL yesterday. The patient was started on IV Lasix. His creatinine is 3.7. He has had excellent urine output. However, this morning patient was started on normal saline at 75 mL/hour. On his chest x-ray there is no evidence of pulmonary vascular congestion. The patient is currently lying flat and he is not short of breath. We do not have any prior labs available for comparison. An ultrasound of the kidneys is not available. PAST MEDICAL HISTORY: 1. Hypertension. 2. Type 2 diabetes. 3. BPH. 4. History of CVA. 5. Hyperlipidemia. ALLERGIES: NONE. MEDICATIONS PRIOR TO ADMISSION: 1. Glucophage. 2. Norvasc. 3. Hytrin. 4. Zocor. 5. Pyridoxin. 6. HydroDIURIL. 7. Folic acid. 8. Proscar. 9. Celexa. 10.Tenormin. 11.Aggrenox. PAST SURGICAL HISTORY: Hernia repair. SOCIAL HISTORY: Patient is an ex-smoker. No history of drug abuse or alcohol abuse. REVIEW OF SYSTEMS: As per HPI. Other systems negative. PHYSICAL EXAMINATION: Patient is currently comfortable. He is lying in bed. He is awake, not in any acute distress. Blood pressure is 111/52, heart rate 61 per minute. He is afebrile. EXAMINATION OF THE HEART: S1, S2. EXAMINATION OF LUNGS: Bilateral breath sounds are heard. ABDOMEN: Soft, non-tender. Examination of lower extremities shows no evidence of edema. NURSERY HAND exam is grossly intact. LABS: Sodium 134, potassium 3.2, BUN 96, serum creatinine 3.7. His UA shows 1+ protein, 22 WBCs, moderate blood. ASSESSMENT: 1. Acute kidney injury, most likely prerenal. Need to rule out obstructive uropathy. Currently patient has been voiding very well. I agree with discontinuation of diuretics and maintaining patient on IV fluids. His chest x-ray is unremarkable and patient does not appear to be volume-overloaded at this time. We will continue with the IV fluids and repeat labs in a.m. I will also check an ultrasound of the kidneys. 2. Rule out chronic kidney disease. The patient does have proteinuria and hematuria. He also has prostatic issues and we will need to follow up on his hematuria. We will try to obtain previous labs to assess patient's baseline renal function. 3. Hypertension; blood pressure on the lower side. Agree with discontinuation of antihypertensive medications. 4. Hypokalemia, status post replacement. PLAN: Check ultrasound of the kidneys. Repeat labs in a.m. Continue IV fluids and try to obtain previous labs to establish patient's baseline renal function. MMODL / IJN: [id number] /
[2017-07-18] MEDS: SODIUM CHLORIDE 0.9% 1,000 ML IV SCH ×3 (01:40→22:41)
[2017-07-18 03:47] LABS: Basophils % (A) 0 %; CH 32.3; Eosinophils # (A) 0.1 k/uL (0-0.7); Eosinophils % (A) 1 %; HCT 32.1 % (39.0-53.0); HDW 2.19; HGB 10.5 gm/dL (13.0-17.5); Luc # (Auto) 0.19; Luc % (Auto) 2; Lymphocytes # (A) 1.1 k/uL (1.0-4.8); Lymphocytes % (A) 9 %; MCHC 32.6 g/dL (31.0-37.0); MCV 95.3 fL (80.0-100.0); Mean Platelet Volume 7.9; Monocytes # (A) 0.6 k/uL (0-1.0); Monocytes % (A) 4 %; Neutrophils # (A) 11.3 k/uL (1.3-7.7); Neutrophils % (A) 85 %; RBC 3.37 m/uL (4.30-5.90); RDW 13.1 % (11.5-15.5); WBC 13.4 k/uL (3.8-10.6); WBC (Perox) 13.52
[2017-07-18 04:00] LABS: Potassium 3.6 mmol/L (3.5-5.1)
[2017-07-18] MEDS ORDERED: POTASSIUM CHLORIDE ER 20 MEQ TAB.ER PO SCH ×2 (05:00)
[2017-07-18 06:26] LABS: Glucose,Whole Blood 176 mg/dL (75-99)
[2017-07-18] MEDS: INSULIN LISPRO (humaLOG) 300 UNIT/3 ML VIAL SQ SCH ×4 (06:29→21:45)
[2017-07-18] MEDS: DIPYRIDAMOLE-ASPIRIN 200-25 MG 1 EACH CPMP.12HR PO SCH ×2 (09:45→20:42)
[2017-07-18] MEDS: ATENOLOL 50 MG TAB PO SCH (09:45)
[2017-07-18] MEDS: CITALOPRAM HYDROBROMIDE 20 MG TAB PO SCH (09:45)
[2017-07-18] MEDS: HEPARIN SODIUM,PORCINE 5,000 UNIT/ML 1 ML VIAL SQ SCH ×2 (09:46→20:42)
[2017-07-18] MEDS: FINASTERIDE 5 MG TAB PO SCH (09:46)
--- NOTE | 2017-07-18 10:10 | PN ---
PROGRESS NOTE Mr. Alvarez is a 81-year-old male with a history of hypertension, hyperlipidemia, who presented with symptoms of progressive fatigue and lack of energy and was found to have severe renal failure. His renal functions were normal in February. He is still feeling weak, but had no chest pain. His breathing has been stable. He denies any dizziness or palpitation. He denies any nausea. He had an echocardiogram performed recently that revealed a preserved ventricular size and systolic function with mild aortic stenosis. He continues to be on IV fluid with a good urinary output, continues to be on: 1. Atenolol 50 mg daily. 2. Lipitor 10 mg daily. 3. Citalopram. 4. Heparin subcu and. 5. Potassium supplement in addition to. 6. Hytrin. PHYSICAL EXAMINATION: Blood pressure 118/60 with a heart in the 60s. LUNGS: Clear. HEART: Regular rate and rhythm. S1, S2. No S3 with systolic murmur. No diastolic murmur. No rub. ABDOMEN: Soft, nontender. EXTREMITIES: No edema. LAB DATA: Revealed BUN and creatinine of 96 and 3.8 with a potassium of 3.6. Hemoglobin of 10.5, white blood cells 13.4. IMPRESSION: 1. Renal failure of unknown etiology. Patient's lab data was normal in February. 2. Hypertension, hypotensive at this time. 3. No evidence of congestive heart failure. 4. History of cerebrovascular accident. 5. Hyperlipidemia. RECOMMENDATION: From the cardiac standpoint, I will stop his Hytrin. I will switch him to Flomax to minimize the hypotensive episode, follow his renal function and depending on his progress, further recommendation will be made. MMODL / IJN: [id number] /
[2017-07-18 11:21] LABS: Hepatitis B Surface Ag Index 0.06
--- NOTE | 2017-07-18 11:23 | CDI ---
In responding to this query, please exercise your independent professional judgment. The [facility] Coding Staff and Clinical Documentation Specialists appreciate your assistance in clarifying documentation, maintaining compliance with coding guidelines, accurately documenting patients condition and capturing severity of illness. The fact that a question is asked does not imply that any particular answer is desired or expected. Communication forms are a method of clarifying documentation and are not made part of the Legal Health Record. Thank you in advance for your clarification. Last Revision, December 2016 Teena Figueroa [address] [address] Documentation Clarification Form Date: 07/18/2017 11:05:00 AM From: Sharri Tai RN, CDS Admit Date: 07/16/2017 3:23:00 PM Patient Name: Tung Alvarez Visit Number: [id number] Dr. Yue Infante, 81 year old patient admitted for Acute Renal Failure with a past medical history of congestive heart failure documented. Per your consult note "elevated BNP is likely secondary to renal failure-not clinically in acute congestive heart failure" History/Risk Factors: Heart failure, HTN, CVA Clinical Indicators: VS: T97.5 HR60 R18 BP110/56 Sat97 BNP 65691, ECHO: Left ventricle size normal, Left ventricle function normal ejection fraction 55-60%, "no evidence of congestive heart failure" per your progress note 07/18 Treatment: IV Lasix discontinued, maintained on home dose Atenolol 50mg daily, Cardiology consult In your professional opinion, can you please clarify the acuity and type of CHF if known? Compensated Chronic Diastolic Heart Failure Compensated Chronic Systolic Heart Failure Compensated Chronic Systolic & Diastolic Heart Failure Unable to determine Other, please specify Please document in your progress notes and discharge summary in order to capture severity of illness and risk of mortality. Include clinical findings that support your diagnosis. FYI: Press F11 to launch patient chart. Thank you. DIOR
[2017-07-18 11:43] LABS: Glucose,Whole Blood 204 mg/dL (75-99)
[2017-07-18] MEDS: FOLIC ACID 1 MG TAB PO SCH (12:13)
--- NOTE | 2017-07-18 15:46 | PN ---
PROGRESS NOTE Patient is seen for followup for acute kidney injury. He was admitted to the hospital with weakness, mental status changes. Patient was initially diuresed, then his Lasix was held and started on IV fluids. His serum creatinine has stayed about the same. Initially, it was at 3.49. It is up to 3.8 now. Patient has had good urine output. His ultrasound does not show any evidence of obstructive uropathy. Of note is that his previous creatinine was 1.1 mg/dL in February of this year. Patient's brought in copies of labs that [facility]. Patient denies any history of use of antibiotics in the last few weeks or couple of months. He has been feeling ill and was treated with Zithromax recently, just prior to this admission. No other specific rashes. His UA does show some blood and I will proceed with workup with serological workup. I will also continue with the IV fluids for now. On examination today, blood pressure is 123/76, heart rate 65 per minute. Patient is afebrile. Examination of the heart, S1, S2. Examination lungs, bilateral breath sounds are heard. No crackles or wheezing is heard. Abdomen is soft, nontender. Examination of lower extremities shows no evidence of edema. MATERIALS PLANNER/PRODUCTION PLANNER exam is grossly intact. LABS: Reveals sodium of 134, potassium 3.6, serum creatinine 3.8, BUN 96, hemoglobin 10.5 g/dL. UA shows protein 1+, moderate blood, WBCs 22, RBCs 3. Ultrasound of the kidneys shows no evidence of hydronephrosis. Right kidney 12.9 cm, left kidney 11.3 cm. There is a small cyst noted on the right kidney. ASSESSMENT: 1. Acute kidney injury. Need to rule out underlying GN. Previous creatinine was 1.1 in February of 2017. UA does show some protein and blood. I will check serologies and as well as random urine eosinophils for acute interstitial nephritis. In the meantime, we will continue with the IV fluids. The patient seems to be tolerating it well. He definitely has excellent urine output. We will repeat labs in a.m. and currently patient is not on any nephrotoxic medications. 2. Benign prostatic hypertrophy with no evidence of hydronephrosis. Currently maintained on Flomax, which we will continue. I will have the nursing staff check a postvoid residual. Patient is also on Proscar, which he should continue. 3. History of cerebrovascular accidents. 4. Hypertension. Blood pressure currently not elevated. Patient is maintained on Tenormin. PLAN: Continue IV fluids. Check serologies, checked urine for eosinophils and repeat labs in a.m. MMODL / IJN: [id number] /
[2017-07-18 16:29] LABS: Glucose,Whole Blood 161 mg/dL (75-99)
--- NOTE | 2017-07-18 17:04 | PN ---
PROGRESS NOTE DATE OF SERVICE: 07/18/2017 This 81-year-old gentleman who was admitted with acute renal failure is being closely monitored. The exact etiology is unknown at this time. The patient is receiving IV fluids at this time. The patient is complaining of generalized tiredness and Nephrology and Cardiology are following the patient closely. There is no active evidence of any CHF at this time. Abdominal/bladder ultrasound was done which did not show any obstructive features. The patient is able to void, also, even though the patient complains prostate difficulties. PAST MEDICAL HISTORY: Reviewed. REVIEW OF SYSTEMS: CARDIOVASCULAR: No angina. RESPIRATORY: As mentioned earlier. GI: As mentioned earlier. : As mentioned earlier. NEUROLOGIC: No numbness or weakness. CURRENT MEDICATIONS: Reviewed, include: 1. Tenormin 50 mg p.o. daily. 2. Lipitor 40 mg p.o. q.h.s. 3. Celexa 20 mg daily. 4. Aggrenox 1 p.o. b.i.d. 5. Proscar 5 mg p.o. daily. 6. Folic acid 1 mg daily. 7. Heparin 5 subcu b.i.d. 8. Levaquin 250 mg q.48 hours. 9. Flomax 0.4 daily. PHYSICAL EXAM: Patient is alert, oriented x3. Pulse is 73, blood pressure 118/59, respirations 18, temperature 98.1, pulse ox 97% on room air. HEENT: Conjunctivae normal. Oral mucosa moist. NECK: No jugular venous distention. CARDIOVASCULAR: S1, S2 muffled. RESPIRATORY: Breath sounds diminished in the bases. A few scattered rhonchi. No crackles. ABDOMEN: Soft, nontender, obese. No mass palpable. LEGS: No edema. No swelling. NERVOUS SYSTEM: Higher functions as mentioned earlier. Moves all 4 limbs. No focal motor or sensory deficits. LYMPHATICS: No lymphadenopathy in neck or axillae. SKIN: No ulcer, rash or bleeding. LABS: WBC 13.5, hemoglobin is 10.5. Sodium 134, creatinine 3.8. Hepatitis B antigen is negative. ASSESSMENT: 1. Acute renal failure, possibly prerenal acute tubular necrosis secondary to possibly dehydration and diuretics. 2. Hypokalemia. 3. Urinary tract infection. 4. History of congestive heart failure. No evidence of fluid overload currently. Chronic congestive heart failure. 5. Increased WBC. 6. Cerebrovascular accident/transient ischemic attack. 7. Hypertension. 8. Hyperlipidemia. RECOMMENDATIONS AND DISCUSSION: Recommend to continue current medications, continue symptomatic treatment. Otherwise, will monitor the patient closely. Otherwise, I would to recommend the IV fluids, monitor fluid-electrolytes balance closely. Increase ambulation for the generalized weakness. I had a detailed discussion with the and the 2 daughters at the bedside. Their questions were answered. Prognosis is guarded, as mentioned earlier. Will closely follow with Nephrology and Cardiology. Further recommendations to follow. MMODL / IJN: [id number] /
[2017-07-18] MEDS ORDERED: TAMSULOSIN 0.4 MG CAP.ER.24H PO SCH (18:30)
[2017-07-18] MEDS: ATORVASTATIN 10 MG TAB PO SCH (20:42)
[2017-07-18 20:46] LABS: ANA w/Reflex to Titer POSITIVE (NEGATIVE)
[2017-07-18 21:07] LABS: Glucose,Whole Blood 216 mg/dL (75-99)
[2017-07-19 06:03] LABS: Glucose,Whole Blood 165 mg/dL (75-99)
[2017-07-19] MEDS: INSULIN LISPRO (humaLOG) 300 UNIT/3 ML VIAL SQ SCH ×2 (06:09→12:15)
[2017-07-19 06:45] LABS: Basophils % (A) 0 %; CH 30.9; CHCM 31.7; Eosinophils # (A) 0.1 k/uL (0-0.7); Eosinophils % (A) 1 %; HCT 32.3 % (39.0-53.0); HDW 2.19; HGB 10.3 gm/dL (13.0-17.5); Luc # (Auto) 0.12; Luc % (Auto) 1; Lymphocytes # (A) 1.2 k/uL (1.0-4.8); Lymphocytes % (A) 10 %; MCH 31.3 pg (25.0-35.0); MCV 97.7 fL (80.0-100.0); Mean Platelet Volume 7.4; Monocytes # (A) 0.4 k/uL (0-1.0); Monocytes % (A) 3 %; Neutrophils # (A) 10.5 k/uL (1.3-7.7); Neutrophils % (A) 85 %; RDW 12.4 % (11.5-15.5); WBC 12.3 k/uL (3.8-10.6); WBC (Perox) 13.06
[2017-07-19 07:05] LABS: Calcium 8.1 mg/dL (8.4-10.2); Potassium 4.1 mmol/L (3.5-5.1)
[2017-07-19 08:47] VITALS: RESP 18; TEMP 97.1
[2017-07-19] MEDS: DIPYRIDAMOLE-ASPIRIN 200-25 MG 1 EACH CPMP.12HR PO SCH (09:10)
[2017-07-19] MEDS: HEPARIN SODIUM,PORCINE 5,000 UNIT/ML 1 ML VIAL SQ SCH (09:10)
[2017-07-19] MEDS: ATENOLOL 50 MG TAB PO SCH (09:10)
[2017-07-19] MEDS: FINASTERIDE 5 MG TAB PO SCH (09:10)
[2017-07-19] MEDS: CITALOPRAM HYDROBROMIDE 20 MG TAB PO SCH (09:10)
[2017-07-19] MEDS: FOLIC ACID 1 MG TAB PO SCH (09:11)
[2017-07-19 10:11] LABS: Appearance,Urine Clear (Clear); Bacteria,Urine Rare /hpf; Bilirubin,Urine Negative (Negative); Glucose,Urine (UA) Trace (Negative); Ketones,Urine Negative (Negative); Leukocyte Esterase,Urine Large (Negative); Mucus,Urine Rare /hpf; Nitrite,Urine Negative (Negative); Particle Count 2389; Protein,Urine Trace (Negative); RBC,Urine 5 /hpf (0-5); Specific Gravity,Urine 1.007 (1.001-1.035); Squamous Epithelial Cell,Urine <1 /hpf (0-4); UA Billing (MACRO vs. MICRO) MICRO; Urobilinogen,Urine <2.0 mg/dL (<2.0); WBC,Urine 19 /hpf (0-5)
[2017-07-19 10:56] VITALS: BMI 26.4
[2017-07-19 11:42] LABS: Glucose,Whole Blood 159 mg/dL (75-99)
[2017-07-19 13:41] VITALS: BP 125/55; PULSE 64
[2017-07-19 14:21] LABS: C-ANCA <1:20 Titer (<1:20); P-ANCA <1:20 Titer (<1:20)
--- NOTE | 2017-07-19 14:44 | PN ---
PROGRESS NOTE Mr. Alvarez is a 81-year-old male who presented with symptoms of progressive fatigue and was found to have significant renal function abnormality. He is doing well this morning. He is denying any chest pain. He denies any dizziness. He is feeling tired. He denies any nausea. He was given the diagnosis of CHF, but he does not have any signs of heart failure neither by exam nor by lab data. He continues to be at this time on Lipitor 10 mg daily, atenolol 50 mg daily, and Flomax 0.4 mg daily. PHYSICAL EXAMINATION: Blood pressure 123/60 with a heart in the 70s. LUNGS: Clear. HEART: Regular rate and rhythm, S1, S2. No S3. No rub. ABDOMEN: Soft, nontender. EXTREMITIES: No edema. LAB DATA: Revealed BUN and creatinine 92 and 3.8, potassium 4.1. His SHANNAN is positive. IMPRESSION: 1. Renal failure of unclear etiology. 2. Hypertension, controlled. 3. No evidence of heart failure during this admission. RECOMMENDATION: From the cardiac standpoint, patient should be able to be discharged home today, undergo further workup in regard to his renal function abnormality as an outpatient. Most likely will require a kidney biopsy. He will be followed in the office in a few weeks to further assess his cardiac status. MMODL / IJN: [id number] /
--- NOTE | 2017-07-19 15:47 | P.DS ---
Providers Date of admission: 07/16/17 15:23 Attending physician: Arielle Rogers Consults: 07/16/17 19:54 Consult Physician Routine Consulting Provider: Ambreen Lorenzo Consult Reason/Comments: acute renal failure Do you want consulting provider notified?: Yes, Notify in am 07/16/17 20:00 Consult Physician Routine Consulting Provider: Miguel Angel Vazquez Consult Reason/Comments: CHF, acute renal failure Do you want consulting provider notified?: Yes, Notify in am Primary care physician: Caio [facility] [facility] Hospital Course: This 81-year-old gentleman with a past medical history of multiple medical problems was admitted with acute renal failure. Creatinine is at the 3.8. The patient is nonoliguric. The patient had history of CHF. Diuretics were held. Cardiology saw the patient as well as nephrology saw the patient. Patient did not have any evidence of CHF at this time. So the patient be discharged in a stable condition with guarded prognosis. Dr. Lorenzo. The patient also is undergoing multiple blood work at this time. Dr. Lorenzo is planning a possible renal biopsy in case of for nonimprovement as an outpatient. On exam vitals stable. Cardio S1 and S2 normal. Respirator system clear to auscultation. Abdomen soft nontender. Nervous system no focal deficit. Patient be discharged in a stable condition with guarded prognosis. Total time taken 35 minutes. Discussed with the patient and the family understood and agreed. Recommend close follow-up with the primary physician nephrology and cardiology. Final diagnosis 1. Acute renal failure possibly prerenal acute tubular necrosis secondary to possible dehydration diuretics. 2. Hypokalemia. 3. UTI. 4. History of CHF no evidence of fluid overload currently. 5. Increased WBC. 6. CVA TIA history. 7. Hypertension. 8. Hyperlipidemia. Patient Condition at Discharge: Stable Plan - Discharge Summary New Discharge Prescriptions: New Levofloxacin [Levaquin] 250 mg PO Q48H #2 tab Tamsulosin [Flomax] 0.4 mg PO PC-SUPPER #30 cap Continue Terazosin [Hytrin] 5 mg PO HS Folic Acid 1 mg PO DAILY Finasteride [Proscar] 5 mg PO DAILY Simvastatin [Zocor] 20 mg PO HS Citalopram Hydrobromide [CeleXA] 20 mg PO DAILY Atenolol [Tenormin] 50 mg PO DAILY Aspirin/Dipyridamole [Aggrenox 25MG -200MG] 1 cap PO BID Pyridoxine 25mg 25 mg PO DAILY Discontinued metFORMIN HCL [Glucophage] 500 mg PO DAILY amLODIPine [Norvasc] 5 mg PO DAILY Hydrochlorothiazide [Hydrodiuril] 50 mg PO DAILY Discharge Medication List Aspirin/Dipyridamole [Aggrenox 25MG -200MG] 1 cap PO BID 07/16/17 [History] Atenolol [Tenormin] 50 mg PO DAILY 07/16/17 [History] Citalopram Hydrobromide [CeleXA] 20 mg PO DAILY 07/16/17 [History] Finasteride [Proscar] 5 mg PO DAILY 07/16/17 [History] Folic Acid 1 mg PO DAILY 07/16/17 [History] Pyridoxine 25mg 25 mg PO DAILY 07/16/17 [History] Simvastatin [Zocor] 20 mg PO HS 07/16/17 [History] Terazosin [Hytrin] 5 mg PO HS 07/16/17 [History] Levofloxacin [Levaquin] 250 mg PO Q48H #2 tab 07/19/17 [Rx] Tamsulosin [Flomax] 0.4 mg PO PC-SUPPER #30 cap 07/19/17 [Rx] Follow up Appointment(s)/Referral(s): Ambreen Lorenzo MD [STAFF PHYSICIAN] - 1 Week (Office staff will call you to schedule follow up. ) Yue Infante MD [STAFF PHYSICIAN] - 07/30/17 1:30 pm Caio Muñoz DO [Primary Care Provider] - 07/27/17 2:00 pm Ambulatory/Diagnostic Orders: Complete Blood Count w/diff [LAB.AMB] Location: Determined By Patient Patient Instructions/Handouts: Acute Kidney Injury (DC), Renal Failure Diet (DC ), Heart Healthy Diet (DC) Activity/Diet/Wound Care/Special Instructions: Activity Limited until follow up. [facility] and as well as Dr. Lorenzo for continued follow-up and repeat blood work on a periodic basis until stable. Discharge Disposition: HOME SELF-CARE
--- NOTE | 2017-07-19 22:17 | PN ---
PROGRESS NOTE Patient was seen this morning. He states he is feeling well. He denies any significant complaints. Serum creatinine has not changed much; it is staying at about 3.8 mg/dL. Upon serological workup, the SHANNAN turned out to be positive. Hepatitis serologies are negative and complements are normal and p-ANCA and C ANCA are also not elevated. I have discussed with the patient regarding need for kidney biopsy due to his renal failure which is fairly acute and not improving with hydration. There is evidence of trace protein and blood in his urine with positive SHANNAN. If we are able to perform the kidney biopsy as inpatient, we can plan it for tomorrow; otherwise, patient could be discharged, and this can be arranged as outpatient. PHYSICAL EXAMINATION: Blood pressure is 125/55, heart rate 64 per minute. Patient is afebrile. EXAMINATION OF THE HEART: S1, S2. EXAMINATION OF LUNGS: Bilateral breath sounds are heard. ABDOMEN: Soft, non-tender. Examination of lower extremities shows no evidence of edema. AUTOMOTIVE DESIGN LAYOUT DRAFTER exam is grossly intact. LABS: Serum creatinine 3.8, BUN 92, sodium 137, potassium 4.1, hemoglobin 10.3 g/dL. ASSESSMENT: 1. Acute kidney injury with evidence of proteinuria and hematuria and positive SHANNAN with no improvement with IV fluids and no evidence of obstructive uropathy. The patient should have a kidney biopsy, and we can plan for this as outpatient if it cannot be scheduled by tomorrow as inpatient. 2. Anemia, most likely anemia of chronic disease. We will check iron studies. This can be done as outpatient if patient is discharged today. PLAN: Kidney biopsy either inpatient or, if patient is discharged, he needs to follow up as outpatient in about 1 week's time. MMODL / IJN: [id number] /
== END 2017-07-19 15:45 | disposition home or self-care (01) | DRG 689 ==
LOC: EC 10:45 → 6SEL 15:23
PROVIDERS: ADMIT Hospitalist; ATTEND Hospitalist
DX: N39.0 Urinary tract infection, site not specified (principal); N17.0 Acute kidney failure with tubular necrosis; E11.9 Type 2 diabetes mellitus without complications; D63.8 Anemia in other chronic diseases classified elsewhere; I10 Essential (primary) hypertension; R62.7 Adult failure to thrive; E86.0 Dehydration; N40.0 Benign prostatic hyperplasia without lower urinary tract symptoms; E78.5 Hyperlipidemia, unspecified; E87.6 Hypokalemia; J06.9 Acute upper respiratory infection, unspecified; I35.0 Nonrheumatic aortic (valve) stenosis; F41.9 Anxiety disorder, unspecified; Z86.73 Personal history of transient ischemic attack (TIA), and cerebral infarction without residual deficits; Z87.891 Personal history of nicotine dependence; Z79.84 Long term (current) use of oral hypoglycemic drugs; Z79.899 Other long term (current) drug therapy; Z79.82 Long term (current) use of aspirin
CPT/HCPCS: 36415; 71020; 76770; 80048; 80053; 81001; 82550; 82553; 83036; 83735; 83880; 84132; 84484; 85025; 86038; 86039; 86160; 86225; 86255; 86335; 86803; 87040; 87077; 87086; 87186; 87205; 87340; 93005; 93306; 94640; 96360; 99285

== ENCOUNTER 2023-11-08 19:16 | Emergency (ER) | payer OTHER ==
[2023-11-08 19:29] VITALS: RESP 18
[2023-11-08] MEDS ORDERED: SODIUM CHLORIDE 0.9% 1,000 ML IV STA (19:29)
[2023-11-08 20:20] LABS: Basophils % (A) 0 %; Eosinophils % (A) 0 %; HCT 41.5 % (39.0-53.0); HGB 13.8 gm/dL (13.0-17.5); Lymphocytes # (A) 1.2 k/uL (1.0-4.8); Lymphocytes % (A) 13 %; MCH 30.8 pg (25.0-35.0); MCHC 33.2 g/dL (31.0-37.0); MCV 92.9 fL (80.0-100.0); Mean Platelet Volume 7.9; Monocytes # (A) 0.5 k/uL (0-1.0); Monocytes % (A) 5 %; Neutrophils # (A) 7.8 k/uL (1.3-7.7); Neutrophils % (A) 80 %; Platelet Count 237 k/uL (150-450); RBC 4.47 m/uL (4.30-5.90); RDW 12.8 % (11.5-15.5); WBC 9.7 k/uL (3.8-10.6)
[2023-11-08] MEDS ORDERED: METOPROLOL TARTRATE 50 MG TAB PO STA (20:32)
[2023-11-08 20:33] LABS: Lactic Acid, Venous 1.4 mmol/L (0.7-2.0)
[2023-11-08 20:34] LABS: ALT 26 U/L (4-49); AST 26 U/L (17-59); African American GFR (CKD) 67 (>60 ml/min/1.73 sqM); Albumin 3.2 g/dL (3.5-5.0); Alkaline Phosphatase 80 U/L (38-126); Anion Gap 9 mmol/L; Blood Urea Nitrogen 25 mg/dL (9-20); Calcium 8.3 mg/dL (8.4-10.2); Carbon Dioxide 21 mmol/L (22-30); Chloride 107 mmol/L (98-107); Glucose 230 mg/dL (74-99); Magnesium 2.1 mg/dL (1.6-2.3); Non-African American GFR(CKD) 58 (>60 ml/min/1.73 sqM); Potassium 3.7 mmol/L (3.5-5.1); Sodium 137 mmol/L (137-145); Total Bilirubin 0.9 mg/dL (0.2-1.3); Total Protein 6.5 g/dL (6.3-8.2)
[2023-11-08 20:39] LABS: INR 1.1 (<1.2); Partial Thromboplastin Time 26.4 sec (22.0-30.0); Prothrombin Time 11.5 sec (10.0-12.5)
[2023-11-08 20:43] LABS: NT-Pro-B-Type Natriuretic Pept 5900 pg/mL
--- NOTE | 2023-11-08 21:00 | CT ---
EXAMINATION TYPE: CT brain wo con DATE OF EXAM: 11/08/2023 COMPARISON: 02/14/2012 MRI brain INDICATION: weakness DLP: 1128.4 mGycm, Automated exposure control for dose reduction was used. CONTRAST: None CT of the brain is performed utilizing 3 mm thick sections through the posterior fossa and 3 mm thick sections through the remaining calvarium. Study is performed within 24 hours of arrival to the hosp [facility]. No abnormal hyperdensity is present to suggest an acute intracranial hemorrhage. No mass lesion is evident. No acute infarcts are evident. Old cortical infarct in the anterior left parietal lobe and old inferi or medial right cerebellar infarct are evident. These were evident on the prior MRI. Ventricles and sulci are prominent for the patient age. Paranasal sinuses and mastoid air cells within the olrat-eb-apow are clear. IMPRESSION: 1. Atrophy. 2. Old infarctions discussed above. 2. No acute intracranial process radiographically apparent. Follow-up MRI can be performed as clinica lly indicated.
--- NOTE | 2023-11-08 21:03 | XR ---
EXAMINATION TYPE: XR chest 2V DATE OF EXAM: 11/08/2023 COMPARISON: 07/16/2017 INDICATION: Increased weakness dimension TECHNIQUE: Frontal and lateral views of the chest are obtained. FINDINGS: The heart size is normal. The pulmonary vasculature is normal. The lungs are clear. Hyperinflation and flattening the diaphragms is compatible with COPD. IMPRESSION: 1. No acute pulmonary process. 2. COPD
--- NOTE | 2023-11-08 21:55 | ED ---
General Adult HPI - General Chief complaint: Weakness Stated complaint: Dehydration Time Seen by Provider: 11/08/23 19:20 Source: patient, family, EMS, RN notes reviewed, old records reviewed Mode of arrival: EMS - History of Present Illness Initial comments: Patient is an 88-year-old male with past medical history remarkable for A-fib, hypertension, heart failure, prior stroke on blood thinners who presents emergency department family over concern for medication noncompliance and mildly increased weakness. Has had decreased oral intake over the last few days. He has not been taking his medications for 2 to 3 days. Is normally alert and oriented x 3 but requires help moving around at home. No known falls. No nausea, vomiting, diarrhea. No chest pain or shortness of breath. Minimal if any cough. Patient's family is concerned because he is not taking his medicat ions. No known sick contacts for the patient. They feel comfortable managing the patient at home. Presented on oxygen with EMS however when removed he is saturating 96% on room air. He has no acute complaints at this time. Is alert and oriented x 3. Presents for further evaluation. Presents with 2 daughters as well as who helps make medical decisions for the patient. - Related Data Home Medications Medication Instructions Recorded Confirmed Citalopram Hydrobromide [CeleXA] 40 mg PO DAILY@1730 07/16/17 11/08/23 Finasteride [Proscar] 5 mg PO DAILY 07/16/17 11/08/23 Folic Acid 2 mg PO DAILY 07/16/17 11/08/23 Simvastatin [Zocor] 20 mg PO HS 07/16/17 11/08/23 Apixaban [Eliquis] 2.5 mg PO BID 11/08/23 11/08/23 Ascorbic Acid [Vitamin C] 250 mg PO DAILY 11/08/23 11/08/23 Cholecalciferol [Vitamin D3 (25 25 mcg PO DAILY 11/08/23 11/08/23 Mcg = 1000 Iu)] Ferrous Sulfate [Feosol] 325 mg PO DAILY 11/08/23 11/08/23 Metoprolol Tartrate [Lopressor] 50 mg PO TID 11/08/23 11/08/23 Pyridoxine HCl (Vitamin B6) 25 mg PO DAILY 11/08/23 11/08/23 [Pyridoxine HCl] Tamsulosin [Flomax] 0.4 mg PO DAILY@1730 11/08/23 11/08/23 glipiZIDE [Glucotrol] 5 mg PO AC-[id number] 11/08/23 11/08/23 Previous Rx's Medication Instructions Recorded Ciprofloxacin HCl [Cipro] 500 mg PO Q12HR 7 Days #14 tab 11/08/23 Allergies Allergy/AdvReac Type Severity Reaction Status Date / Time No Known Allergies Allergy Verified 11/08/23 20:24 Review of Systems ROS Statement: Those systems with pertinent positive or pertinent negative responses have been documented in the HPI. Review of Systems: CONST: Denies fever EYES: Denies blurry vision ENT: Denies nasal congestion C/V: Denies Chest pain RESP: Denies shortness of breath GI: Denies abdominal pain : Denies dysuria SKIN: Denies rash. MSK: Denies joint pain. NEURO: Denies headache ROS Other: All systems not noted in ROS Statement are negative. Past Medical History Past Medical History: Heart Failure, CVA/TIA, Hyperlipidemia, Hypertension, Prostate Disorder History of Any Multi-Drug Resistant Organisms: None Reported Past Surgical History: Hernia Repair Past Psychological History: Anxiety Smoking Status: Former smoker Past Alcohol Use History: None Reported, Rare Past Drug Use History: None Reported General Exam - General Exam Comments Initial Comments: General: Appears in no acute distress. HEAD: Normal with no signs of head trauma. EYES: PERRLA, EOMI, conjunctiva normal, no discharge. Pupils are 3 mm and equal bilaterally. ENT: Hearing grossly intact, normal oropharynx. Mildly dry mucous membranes. RESPIRATORY: Clear breath sounds bilaterally. No wheezes, rales, or rhonchi. C/V: Irregular rate and rhythm. S1 and S2 auscultated, peripheral pulses 2+ and intact throughout ABD: Abd is soft, nontender, nondistended EXT: Normal range of motion, no obvious deformity SKIN: No rashes or lesions observed on exposed skin. NEURO: Alert and oriented x 4. Cranial nerves II-XII intact. No focal acute sensory or strength deficits. Chronic lower extremity weakness Course Vital Signs 11/08/23 11/08/23 11/08/23 19:21 19:49 20:28 Temperature 97.5 F L Pulse Rate 114 H 109 H Respiratory 18 18 Rate Blood Pressure 138/70 169/85 O2 Sat by Pulse 98 96 Oximetry 11/08/23 11/08/23 21:28 21:48 Temperature Pulse Rate 113 H 111 H Respiratory 18 18 Rate Blood Pressure 141/83 163/93 O2 Sat by Pulse 96 96 Oximetry Medical Decision Making - Medical Decision Making Was pt. sent in by a medical professional or institution (, TOSIN, HADOOP DEVELOPER, urgent care, hospital, or half-way...) When possible be specific @ -No Did you speak to anyone other than the patient for history (EMS, parent, family, police, friend...)? What history was obtained from this source @ -Patient's 2 daughters and provide most of the patient's past medical history. Did you review nursing and triage notes (agree or disagree)? Why? @ -I reviewed and agree with nursing and triage notes Were old charts reviewed (outside hosp., previous admission, EMS record, old EKG, old radiological studies, urgent care reports/EKG's, half-way records)? Report findings @ -Old chart reviewed Differential Diagnosis (chest pain, altered mental status, abdominal pain women, abdominal pain men, vaginal bleeding, weakness, fever, dyspnea, syncope, headache, dizziness, GI bleed, back pain, seizure, CVA, palpatations, mental health, musculoskeletal)? @ -Differential Weakness: Hypoglycemia, shock, sepsis, hyponatremia, anemia, infection, IA, ETOH, adverse medicine reaction, overdose, stroke, this is not meant to be an all-inclusive list. EKG interpreted by me (3pts min.). @ -As above X-rays interpreted by me (1pt min.). @ -Chest x-ray reveals no obvious acute cardiopulmonary process. CT interpreted by me (1pt min.). @ -CT brain reveals no obvious acute intracranial process or bleed. Old strokes present. U/S interpreted by me (1pt. min.). @ -None done What testing was considered but not performed or refused? (CT, X-rays, U/S, labs)? Why? @ -Offered COVID and flu testing but this was declined. What meds were considered but not given or refused? Why? @ -None Did you discuss the management of the patient with other professionals (professionals i.e. , TOSIN, HADOOP DEVELOPER, lab, RT, psych nurse, adoption social worker, product picker, teacher, community services officer, machine adjuster leader case trim)? Give summary @ -No Was smoking cessation discussed for >3mins.? @ -No Was critical care preformed (if so, how long)? @ -No Were there social determinants of health that impacted care today? How? (Ho melessness, low income, unemployed, alcoholism, drug addiction, transportation, low edu. Level, literacy, decrease access to med. care, residential, rehab)? @ -No Was there de-escalation of care discussed even if they declined (Discuss DNR or withdrawal of care, Hospice)? DNR status @ -No What co-morbidities impacted this encounter? (DM, HTN, Smoking, COPD, CAD, Cancer, CVA, ARF, Chemo, Hep., AIDS, mental health diagnosis, sleep apnea, morbid obesity)? @ -None Was patient admitted / discharged? Hospital course, mention meds given and route, prescriptions, significant lab abnormalities, going to OR and other pertinent info. @ -Patient presents in mild A-fib with RVR. Has been noncompliant with medications for multiple days. Also some mild increased weakness and concern for oral intake from family. Has a history of dementia. Oral intake decreased has been more progressive. Vital signs within the tachycardia are within acceptable limits. Patient has no acute complaints. Presents for further evaluation at this time. I discussed with the family, I would like to obtain infectious workup as well as a CT brain as he is on blood thinners and may have fallen. They were in agreement this plan. They declined COVID and flu swab at this time. Patient will be symptomatically treated with a 1 L fluid bolus at this time but he has no other acute complaints. He will also be given a dose of his home metoprolol at this time. CT imaging and chest x-ray unremarkable. EKG shows the A-fib with RVR with no signs of acute ischemia. Patient's laboratory studies are remarkable for a nonelevated troponin. And no other obvious findings. Lactic acid within normal limits. Mild hyperglycemia. I did discuss with patient's family at this time. We are waiting for urinalysis. Patient and family were updated regarding the results. They are in agreement waiting for the urinalysis. I did offer admission for weakness as well as the poor p.o. intake however labs are relatively unimpressive. They would prefer to take the patient home at this time after urinalysis. They feel comfortable managing the patient at home and are working on other options for home health. I am in agreement this plan as long as family and are comfortable taking the patient home. Patient was also in agreement this plan. Family was in agreement this plan. Urinalysis revealed a UTI. Culture sent. We will start the patient on home ciprofloxacin. Patient be given a dose of IV Rocephin prior to discharge. They were in agreement this plan. Metoprolol improved the patient's heart rate from the 110-120 to 100-108. I will provide the patient with a prescription for ciprofloxacin. I instructed t he patient to follow up with their PCP in the next 1-3 days. I explained that the patient should return to the emergency department if they experience any worsening symptoms. Strict return precautions were discussed with the patient. The patient expressed understanding of these instructions. I answered all questions that the patient had. The patient was discharged home in fair condition with their prescriptions and follow up information. I stressed the importance of compliance with medications to the patient. He was in agreement this plan. Undiagnosed new problem with uncertain prognosis? @ -No Drug Therapy requiring intensive monitoring for toxicity (Heparin, Nitro, Insulin, Cardizem)? @ -No Were any procedures done? @ -No Diagnosis/symptom? @ -UTI, medication noncompliance Acute, or Chronic, or Acute on Chronic? @ -Acute Uncomplicated (without systemic symptoms) or Complicated (systemic symptoms)? @ -Complicated Side effects of treatment? @ -No Exacerbation, Progression, or Severe Exacerbation? @ -No Poses a threat to life or bodily function? How? (Chest pain, USA, IA, pneumonia, PE, COPD, DKA, ARF, appy, cholecystitis, CVA, Diverticulitis, Homicidal, Suicidal, threat to staff... and all critical care pts) @ -Unlikely Diagnosis/symptom? @ -A-fib Acute, or Chronic, or Acute on Chronic? @ -Acute on chronic Uncomplicated (without systemic symptoms) or Complicated (systemic symptoms)? @ -Uncomplicated Side effects of treatment? @ -None Exacerbation, Progression, or Severe Exacerbation] @ -No Poses a threat to life or bodily function? @ -If controlled, unlikely Diagnosis/symptom? @ -Dementia Acute, or Chronic, or Acute on Chronic? @ -Chronic Uncomplicated (without systemic symptoms) or Complicated (systemic symptoms)? @ -Complicated Side effects of treatment? @ -None Exacerbation, Progression, or Severe Exacerbation] @ -No Poses a threat to life or bodily function? @ -No - Lab Data Result diagrams: 11/08/23 19:38 11/08/23 19:38 Lab Results 11/08/23 11/08/23 11/08/23 Range/Units 19:38 19:38 19:38 WBC 9.7 (3.8-10.6) k/uL RBC 4.47 (4.30-5.90) m/uL Hgb 13.8 (13.0-17.5) gm/dL Hct 41.5 (39.0-53.0) % MCV 92.9 (80.0-100.0) fL MCH 30.8 (25.0-35.0) pg MCHC 33.2 (31.0-37.0) g/dL RDW 12.8 (11.5-15.5) % Plt Count 237 (150-450) k/uL MPV 7.9 Neutrophils % 80 % Lymphocytes % 13 % Monocytes % 5 % Eosinophils % 0 % Basophils % 0 % Neutrophils # 7.8 H (1.3-7.7) k/uL Lymphocytes # 1.2 (1.0-4.8) k/uL Monocytes # 0.5 (0-1.0) k/uL Eosinophils # 0.0 (0-0.7) k/uL Basophils # 0.0 (0-0.2) k/uL PT 11.5 (10.0-12.5) sec INR 1.1 (<1.2) APTT 26.4 (22.0-30.0) sec Sodium (137-145) mmol/L Potassium (3.5-5.1) mmol/L Chloride (98-107) mmol/L Carbon Dioxide (22-30) mmol/L Anion Gap mmol/L BUN (9-20) mg/dL Creatinine (0.66-1.25) mg/dL Est GFR (CKD-EPI)AfAm (>60 ml/min/1.73 sqM) Est GFR (CKD-EPI)NonAf (>60 ml/min/1.73 sqM) Glucose (74-99) mg/dL Plasma Lactic Acid Dimitrios (0.7-2.0) mmol/L Calcium (8.4-10.2) mg/dL Magnesium (1.6-2.3) mg/dL Total Bilirubin (0.2-1.3) mg/dL AST (17-59) U/L ALT (4-49) U/L Alkaline Phosphatase (38-126) U/L Ammonia (<30) umol/L Troponin I (0.000-0.034) ng/mL NT-Pro-B Natriuret Pep pg/mL Total Protein (6.3-8.2) g/dL Albumin (3.5-5.0) g/dL Urine Color Light Yellow Urine Appearance Cloudy (Clear) Urine pH 7.5 (5.0-8.0) Ur Specific [place] 1.017 (1.001-1.035) Urine Protein 1+ H (Negative) Urine Glucose (UA) 3+ H (Negative) Urine Ketones Trace H (Negative) Urine Blood Negative (Negative) Urine Nitrite Positive (Negative) Urine Bilirubin Negative (Negative) Urine Urobilinogen <2.0 (<2.0) mg/dL Ur Leukocyte Esterase Small H (Negative) Urine RBC 1 (0-5) /hpf Urine WBC 28 H (0-5) /hpf Urine WBC Clumps Rare H (None) /hpf Ur Squamous Epith Cells 1 (0-4) /hpf Triple Phos Crystals Occasional H (None) /hpf Amorphous Sediment Rare H (None) /hpf Urine Bacteria Many H (None) /hpf Hyaline Casts 7 H (0-2) /lpf Urine Mucus Rare H (None) /hpf 11/08/23 11/08/23 11/08/23 Range/Units 19:38 19:38 19:38 WBC (3.8-10.6) k/uL RBC (4.30-5.90) m/uL Hgb (13.0-17.5) gm/dL Hct (39.0-53.0) % MCV (80.0-100.0) fL MCH (25.0-35.0) pg MCHC (31.0-37.0) g/dL RDW (11.5-15.5) % Plt Count (150-450) k/uL MPV Neutrophils % % Lymphocytes % % Monocytes % % Eosinophils % % Basophils % % Neutrophils # (1.3-7.7) k/uL Lymphocytes # (1.0-4.8) k/uL Monocytes # (0-1.0) k/uL Eosinophils # (0-0.7) k/uL Basophils # (0-0.2) k/uL PT (10.0-12.5) sec INR (<1.2) APTT (22.0-30.0) sec Sodium 137 (137-145) mmol/L Potassium 3.7 (3.5-5.1) mmol/L Chloride 107 (98-107) mmol/L Carbon Dioxide 21 L (22-30) mmol/L Anion Gap 9 mmol/L BUN 25 H (9-20) mg/dL Creatinine 1.15 (0.66-1.25) mg/dL Est GFR (CKD-EPI)AfAm 67 (>60 ml/min/1.73 sqM) Est GFR (CKD-EPI)NonAf 58 (>60 ml/min/1.73 sqM) Glucose 230 H (74-99) mg/dL Plasma Lactic Acid Dimitrios 1.4 (0.7-2.0) mmol/L Calcium 8.3 L (8.4-10.2) mg/dL Magnesium 2.1 (1.6-2.3) mg/dL Total Bilirubin 0.9 (0.2-1.3) mg/dL AST 26 (17-59) U/L ALT 26 (4-49) U/L Alkaline Phosphatase 80 (38-126) U/L Ammonia <9 (<30) umol/L Troponin I 0.017 (0.000-0.034) ng/mL NT-Pro-B Natriuret Pep 5900 pg/mL Total Protein 6.5 (6.3-8.2) g/dL Albumin 3.2 L (3.5-5.0) g/dL Urine Color Urine Appearance (Clear) Urine pH (5.0-8.0) Ur Specific [place] (1.001-1.035) Urine Protein (Negative) Urine Glucose (UA) (Negative) Urine Ketones (Negative) Urine Blood (Negative) Urine Nitrite (Negative) Urine Bilirubin (Negative) Urine Urobilinogen (<2.0) mg/dL Ur Leukocyte Esterase (Negative) Urine RBC (0-5) /hpf Urine WBC (0-5) /hpf Urine WBC Clumps (None) /hpf Ur Squamous Epith Cells (0-4) /hpf Triple Phos Crystals (None) /hpf Amorphous Sediment (None) /hpf Urine Bacteria (None) /hpf Hyaline Casts (0-2) /lpf Urine Mucus (None) /hpf - EKG Data -: EKG Interpreted by Me EKG Comments: 12-lead Electrocardiogram Interpretation Note EKG was reviewed and interpreted by myself. 12-lead ECG performed at 1949 is interpreted by me as revealing A-fib with RVR at a rate of 113 beats per minute. [place] is normal. QRS duration 74 ms, QTc is 274 ms.. There were no ST or T wave abnormalities to suggest myocardial ischemia or injury. R wave progression across the precordium was satisfactory. By my interpretation this EKG is non- diagnostic for acute ischemia. Disposition Clinical Impression: UTI (urinary tract infection), Noncompliance with medication regimen, Dementia, Afib Disposition: HOME SELF-CARE Condition: Fair Instructions (If sedation given, give patient instructions): Urinary Tract Infection in Men (ED) Prescriptions: Ciprofloxacin HCl [Cipro] 500 mg PO Q12HR 7 Days #14 tab Is patient prescribed a controlled substance at d/c from ED?: No Referrals: [facility],Clinic [Primary Care Provider] - 1-2 days Time of Disposition: 23:00
[2023-11-08 22:51] LABS: Amorphous Sediment,Urine Rare /hpf; Appearance,Urine Cloudy (Clear); Bacteria,Urine Many /hpf; Bilirubin,Urine Negative (Negative); Blood,Urine Negative (Negative); Color,Urine Light Yellow; Glucose,Urine (UA) 3+ (Negative); Hyaline Casts,Urine 7 /lpf (0-2); Ketones,Urine Trace (Negative); Leukocyte Esterase,Urine Small (Negative); Mucus,Urine Rare /hpf; Nitrite,Urine Positive (Negative); PH, Urine 7.5 (5.0-8.0); Protein,Urine 1+ (Negative); RBC,Urine 1 /hpf (0-5); Specific Gravity,Urine 1.017 (1.001-1.035); Squamous Epithelial Cell,Urine 1 /hpf (0-4); Triple Phosphate Crystal,Urine Occasional /hpf; Urobilinogen,Urine <2.0 mg/dL (<2.0); WBC,Urine 28 /hpf (0-5)
[2023-11-08] MEDS ORDERED: cefTRIAXone IN SWFI 1,000 MG/10 ML SYRINGE IVP STA (23:03)
[2023-11-09 00:40] VITALS: BP 131/73; PULSE 110; TEMP 97.9
== END 2023-11-08 23:35 | disposition home or self-care (01) ==
LOC: EC 19:16
DX: N39.0 Urinary tract infection, site not specified (principal); F03.90 Unspecified dementia, unspecified severity, without behavioral disturbance, psychotic disturbance, mood disturbance, and anxiety; I48.92 Unspecified atrial flutter; I48.91 Unspecified atrial fibrillation; J44.9 Chronic obstructive pulmonary disease, unspecified; I11.0 Hypertensive heart disease with heart failure; I50.9 Heart failure, unspecified; F41.9 Anxiety disorder, unspecified; E78.5 Hyperlipidemia, unspecified; Z79.01 Long term (current) use of anticoagulants; Z79.899 Other long term (current) drug therapy; Z87.891 Personal history of nicotine dependence; Z86.73 Personal history of transient ischemic attack (TIA), and cerebral infarction without residual deficits; Z91.148 Patient's other noncompliance with medication regimen for other reason
CPT/HCPCS: 36415; 93005; 83880; 80053; 82140; 83605; 83735; 84484; 85025; 85610; 85730; 81001; 87040; 71046; 70450; 99285; 96374; 96361 ×2; J0696